=== PATIENT | female | born 1995 | race Caucasian/White ===

== ENCOUNTER 2017-11-13 20:05 | Emergency (ER) | payer OTHER ==
[2017-11-13] MEDS: HYDROCODONE/APAP (5/325) TAB PO (20:54)
[2017-11-13] MEDS: KETOROLAC 60 MG INJ IM (20:54)
== END 2017-11-13 21:11 | disposition home or self-care (01) ==
LOC: FTE 20:05
DX: S39.012A Strain of muscle, fascia and tendon of lower back, initial encounter (principal); V49.40XA Driver injured in collision with unspecified motor vehicles in traffic accident, initial encounter
CPT/HCPCS: 81025; 96372; 99284-25